=== PATIENT | female | born 1990 | race Caucasian/White ===

== ENCOUNTER 2019-08-04 22:27 | Emergency (ER) | payer BC ==
[~2019-08-04] VITALS: Ht 175.3 cm; Wt 98.0 kg
[2019-08-04 22:38] VITALS: Ht 175.3 cm; Wt 98.0 kg
[2019-08-05 00:54] VITALS: BP 148/76
== END 2019-08-05 00:54 | disposition home or self-care (01) ==
LOC: ED 22:27
DX: M94.0 Chondrocostal junction syndrome [Tietze] (principal); E03.9 Hypothyroidism, unspecified
CPT/HCPCS: J1885; Q0092